=== PATIENT | male | born 1950 | race Caucasian/White ===

== ENCOUNTER 2016-06-21 18:37 | Inpatient (IN) | payer MEDICARE, MEDICAID ==
[~2016-06-21] VITALS: Ht 165.1 cm; Wt 70.8 kg
[~2016-06-21 18:37] MED LIST: ASPI81TA31 PO; CANA100T PO; CLOP75TA2 PO; DONE10TA44 PO; FELO10TA3 PO; GABA-532 PO; GLIM4TAB3 PO; LINA5TAB PO; LORA10TA50 PO; METO-306 PO; PARO10TA26 PO; PRAV80TA21 PO; TAMS0.4C34 PO; TEMA30CA PO; [UNRECOGNIZED DRUG - CODE] PO
[2016-06-21] MEDS ORDERED: IV NORMAL SALINE 500 ML IV ONE (18:53)
[2016-06-21] MEDS ORDERED: MEMA1CAP3 PO (19:08)
[2016-06-21] MEDS ORDERED: DUTA0.5C15 PO (19:08)
[2016-06-21] MEDS ORDERED: AMLO5TAB4 PO (19:08)
[2016-06-21] MEDS ORDERED: EMPA25TA PO (19:08)
[2016-06-21] MEDS ORDERED: TRAM50TA2 PO (19:08)
[2016-06-21] MEDS ORDERED: FOLI1TAB16 PO (19:08)
[2016-06-21 19:38] LABS: HEMOGLOBIN 12.3 g/dL (14.0-18.0)
[2016-06-21 19:42] LABS: HEMATOCRIT 38.6 % (40.0-50.0); MEAN CORPUSCULAR VOLUME 79.3 fL (82.0-92.0); RED BLOOD CELL COUNT(AUTO) 4.87 MIL/uL (4.70-6.10); WHITE BLOOD COUNT (AUTO) 7.6 K/uL (4.0-11.2)
[2016-06-21 19:43] LABS: MEAN CORPUSCULAR HEMOGLOBIN 25.3 uug (27.0-31.0); MEAN CORPUSCULAR HGB CONC 32 g/dL (32.0-37.0); PLATELET COUNT (AUTO) 328 K/uL (150-450); RED CELL DISTRIBUTION WIDTH 15.4 % (11.5-14.5)
[2016-06-21 19:47] LABS: CALCIUM 8.4 mg/dL (8.5-10.1); CREATININE 1.1 mg/dL (0.6-1.3); POTASSIUM 4.1 mmol/L (3.5-5.1)
[2016-06-21 19:48] LABS: ANISOCYTOSIS 1+; BAND % (MANUAL) 3 % (0-10); EOSINOPHILS % (MANUAL) 2 % (0-8); LYMPHOCYTES % (MANUAL) 11 % (20-40); MONOCYTES % (MANUAL) 8 % (2-10); NEUTROPHILS % (MANUAL) 76 % (42-75); OVALOCYTES 1+; PLATELET ESTIMATE ADEQUATE
--- NOTE | 2016-06-21 19:49 | NUR ---
Patient to radiology for CT via [place].
[2016-06-21 19:59] LABS: ALBUMIN 3.2 g/dL (3.4-5.0); BILIRUBIN,DIRECT 0.1 mg/dL (0.0-0.2); BILIRUBIN,TOTAL 0.3 mg/dL (0.2-1.0); TOTAL PROTEIN, SERUM 6.5 g/dL (6.4-8.2)
--- NOTE | 2016-06-21 20:51 | NUR ---
Call placed to [facility] Nephrology, Dr. Torres will be paged.
[2016-06-21] MEDS ORDERED: ENOXAPARIN SODIUM 80 MG/0.8 ML DISP.SYRIN SQ ONE ×2 (21:00→21:26)
[2016-06-21] MEDS ORDERED: ASPIRIN 81 MG TAB.CHEW PO ONE (21:00)
[2016-06-21] MEDS ORDERED: NITROGLYCERIN OINT 1 GM PACKET TP ONE ×2 (21:00→21:26)
[2016-06-21 21:19] LABS: *OCCULT BLOOD STOOL NEGATIVE (NEGATIVE)
[2016-06-21] MEDS ORDERED: ASPIRIN 81 MG TAB.CHEW ONE (21:25)
[2016-06-21 21:36] LABS: ACETONE, SERUM NEGATIVE (NEGATIVE)
[2016-06-21 21:58] LABS: *BILIRUBIN,URIN NEGATIVE (NEGATIVE); *BLOOD, URINE NEGATIVE (NEGATIVE); *CLARITY,URINE CLEAR (CLEAR); *COLOR,URINE YELLOW (YELLOW); *KETONES,URINE NEGATIVE (NEGATIVE); *PROTEIN,URINE TRACE (NEGATIVE); *UROBILINOGEN,URINE 0.2 E.U./dl (NORMAL); LEUKOCYTE ESTERASE ,URINE NEGATIVE (NEGATIVE); NITRITE, URINE NEGATIVE (NEGATIVE)
[2016-06-21 22:09] LABS: UGLUCOSE 2+ (NEGATIVE)
[2016-06-21 22:11] LABS: SQUAMOUS EPITHELIAL CELL,UR FEW /HPF (NONE SEEN); WBC,URINE 0-3 /HPF (0-3)
--- NOTE | 2016-06-21 22:28 | NUR ---
Pt. admitted to TELE, under care of Dr. Torres Belongs List completed
[2016-06-21] MEDS ORDERED: TEMAZEPAM 30 MG CAPSULE PO PRN (22:45)
[2016-06-21] MEDS ORDERED: DEXTROSE 50% 50 ML DISP.SYRIN IV PRN (22:45)
--- NOTE | 2016-06-21 22:45 | NUR ---
RECEIVED PATIENT VIA GURNEY FROM ER. PATIENT IS A/O X3. PRIMARILY [place] SPEAKING BUT SPEAKS [place] AND ABLE TO MAKE NEEDS KNOWN. PATIENT TENDS TO BECOME FORGETFUL AT TIMES. PATIENT DENIES PAIN OR DISCOMFORT. NO RESP. DISTRESS NOTED OR C/O. PLACED ON TELE ORDERED SINUS RHYTHM. BP 179/98. PATIENT STATED THAT HE HAS NOT TAKEN ANY OF HIS MEDICATIONS TODAY. ALL OTHER VSS. HEPLOCK INTACT AND NOTED TO LEFT WRIST. ORIENTED PATIENT TO ROOM AND CALL LIGHT. BED ALARM ON, CALL LIGHT IN REACH. ALL NEEDS ATTENDED. WILL CONTINUE TO MONITOR.
[2016-06-21] MEDS: BLOOD SUGAR DIAGNOSTIC 1 EACH STRIP VI SCH (22:46)
--- NOTE | 2016-06-21 23:00 | NUR ---
PATIENT GIVEN ROUTINE HS MEDS. GIVEN NORVASC 5MG PO FOR BP 179/98. ALL OTHER VSS. ON TELE SR. CALL LIGHT IN REACH. ALL NEEDS ATTENDED.
[2016-06-21 23:07] VITALS: BP 179/98
[2016-06-21] MEDS: PAROXETINE HCL 10 MG TABLET PO SCH (23:09)
[2016-06-21] MEDS: DUTASTERIDE 0.5 MG CAPSULE PO SCH (23:09)
[2016-06-21] MEDS: AMLODIPINE 5 MG TABLET PO SCH (23:10)
[2016-06-21] MEDS ORDERED: AMLODIPINE 5 MG TABLET ONE (23:14)
[2016-06-21] MEDS ORDERED: DUTASTERIDE 0.5 MG CAPSULE ONE (23:15)
[2016-06-21] MEDS ORDERED: PAROXETINE HCL 10 MG TABLET ONE (23:15)
--- NOTE | 2016-06-21 23:50 | NUR ---
PATIENT DENIES CHEST PAIN. WILL CONTINUE TO MONITOR.
--- NOTE | 2016-06-22 04:30 | NUR ---
PATIENT ASSISTED TO THE BATHROOM TO URINATE. PATIENT IS VERY WEAK AND UNSTEADY. NEEDS MAX ASSIST OOB. VERY FORGETFUL AT TIMES. BED ALARM ON. CALL LIGHT IN REACH. ALL NEEDS ATTENDED. WILL CONTINUE TO MONITOR.
[2016-06-22 06:00] VITALS: BP 173/97
--- NOTE | 2016-06-22 06:00 | NUR ---
PATIENT AWAKE IN BED. BP 173/97. CALLED OUT TO DR. SOOD FOR FURTHER ORDERS.
[2016-06-22] MEDS: BLOOD SUGAR DIAGNOSTIC 1 EACH STRIP VI SCH ×4 (06:33→20:22)
--- NOTE | 2016-06-22 06:36 | NUR ---
PATIENT ON TELE SR.
--- NOTE | 2016-06-22 06:46 | NUR ---
RECEIVED CALL BACK FROM DR. SOOD. OK TO GIVE ROUTINE METOPROLOL SUCCINATE XL 100MG PO NOW FOR BP 173/97. WILL CONTINUE TO MONITOR.
[2016-06-22] MEDS: METOPROLOL SUCCINATE XL 100 MG TAB.SR.24H PO SCH ×2 (06:49→06:50)
[2016-06-22 07:08] LABS: HEMATOCRIT 36.1 % (40.0-50.0); HEMOGLOBIN 11.6 g/dL (14.0-18.0); MEAN CORPUSCULAR HEMOGLOBIN 25.3 uug (27.0-31.0); MEAN CORPUSCULAR HGB CONC 32 g/dL (32.0-37.0); MEAN CORPUSCULAR VOLUME 79.1 fL (82.0-92.0); PLATELET COUNT (AUTO) 303 K/uL (150-450); RED BLOOD CELL COUNT(AUTO) 4.57 MIL/uL (4.70-6.10); RED CELL DISTRIBUTION WIDTH 15.1 % (11.5-14.5); WHITE BLOOD COUNT (AUTO) 6.7 K/uL (4.0-11.2)
[2016-06-22 07:18] LABS: ALBUMIN 2.9 g/dL (3.4-5.0); BILIRUBIN,TOTAL 0.3 mg/dL (0.2-1.0); CALCIUM 8.4 mg/dL (8.5-10.1); MAGNESIUM 1.9 mg/dL (1.8-2.4); PHOSPHOROUS 4.1 mg/dL (2.5-4.9); POTASSIUM 3.9 mmol/L (3.5-5.1); TOTAL PROTEIN, SERUM 6.1 g/dL (6.4-8.2)
[2016-06-22] MEDS ORDERED: TEMAZEPAM 15 MG CAPSULE PO PRN (07:30)
[2016-06-22] MEDS ORDERED: TRAMADOL HCL 50 MG TABLET PO PRN (07:45)
[2016-06-22] MEDS ORDERED: METFORMIN XR 500 MG TAB.SR.24H PO SCH (08:00)
[2016-06-22] MEDS ORDERED: Medication Not On Formulary EA (Empagliflozin (Jardiance) 25 MG) PO SCH (09:00)
[2016-06-22] MEDS ORDERED: METOPROLOL SUCCINATE XL 100 MG TAB.SR.24H PO SCH ×2 (09:00→12:30)
[2016-06-22] MEDS ORDERED: Medication Not On Formulary EA (Memantine HCl/Donepezil HCl (Namzaric 28 mg-10 mg Capsul PO SCH (09:00)
[2016-06-22] MEDS: GLIMEPIRIDE 4 MG TABLET PO SCH ×2 (09:32→17:43)
[2016-06-22] MEDS: FOLIC ACID 1 MG TABLET PO SCH (09:33)
[2016-06-22] MEDS: GABAPENTIN 100 MG CAPSULE PO SCH ×2 (09:33→20:21)
[2016-06-22] MEDS: LINAGLIPTIN 5 MG TABLET PO SCH (09:33)
[2016-06-22] MEDS: CLOPIDOGREL 75 MG TABLET PO SCH (09:33)
[2016-06-22] MEDS: ASPIRIN 81 MG TAB.CHEW PO SCH (09:33)
--- NOTE | 2016-06-22 09:47 | NUR ---
0900 DOSE OF TOPROL GIVEN AT 0650
[2016-06-22] MEDS: DONEPEZIL 10 MG TABLET PO SCH (10:36)
[2016-06-22 11:28] LABS: LYMPHOCYTES % (AUTO) 24.5 % (20.5-51.5); NEUTROPHILS % (AUTO) 61.3 % (38.5-71.5)
[2016-06-22 11:29] LABS: BASOPHILS % (AUTO) 0.5 % (0.0-2.0); EOSINOPHILS % (AUTO) 3.7 % (0.0-7.0)
[2016-06-22 11:31] VITALS: BP 157/90
[2016-06-22] MEDS: INSULIN REGULAR, HUMAN 300 UNIT/3 ML VIAL SQ PRN (12:01)
[2016-06-22 15:55] VITALS: BP 181/99
[2016-06-22] MEDS: VALSARTAN 160 MG TABLET PO SCH (17:40)
[2016-06-22] MEDS: AMLODIPINE 5 MG TABLET PO SCH (17:41)
[2016-06-22] MEDS: METFORMIN HCL 500 MG TABLET PO SCH (17:43)
[2016-06-22 20:00] VITALS: BP 186/102
--- NOTE | 2016-06-22 20:00 | NUR ---
RECEIVED PATIENT AWAKE IN BED. ALERT TO SELF. CONFUSED. PATIENT IS EASILY FORGETFUL. DENIES PAIN OR DISCOMFORT. BP STILL ELEVATED. 186/102. CALLED OUT TO DR. SOTO CHIEF MEDICAL PHYSICIST FOR FURTHER ORDERS. ALL OTHER VSS. BED ALARM ON. CALL LIGHT IN REACH. ALL NEEDS ATTENDED. WILL CONTINUE TO MONITOR.
[2016-06-22] MEDS: NITROGLYCERIN OINT 1 GM PACKET TP PRN (20:09)
--- NOTE | 2016-06-22 20:10 | NUR ---
PATIENT GIVEN NITRO-BID 1 INCH TO CHEST WALL FOR ELEVATED BP. WILL CONTINUE TO MONITOR.
[2016-06-22] MEDS ORDERED: NITROGLYCERIN OINT 1 GM PACKET TP ONE (20:15)
[2016-06-22] MEDS: ATORVASTATIN 20 MG TABLET PO SCH (20:21)
[2016-06-22] MEDS: MEMANTINE HCL 10 MG TABLET PO SCH (20:21)
[2016-06-22] MEDS: DUTASTERIDE 0.5 MG CAPSULE PO SCH (20:21)
[2016-06-22] MEDS: PAROXETINE HCL 10 MG TABLET PO SCH (20:21)
--- NOTE | 2016-06-22 22:30 | NUR ---
PATIENTS BLOOD PRESSURE IS SLOWLY TRENDING DOWN. PATIENT DENIES ANY CHEST PAIN. WILL CONTINUE TO MONITOR.
--- NOTE | 2016-06-23 03:45 | NUR ---
PATIENT AWAKE. BP ELEVATED 173/105. PATIENT GIVEN NITRO BID 1 INCH TO CHEST WALL ORDERED PRN. WILL CONTINUE TO MONITOR.
[2016-06-23] MEDS: NITROGLYCERIN OINT 1 GM PACKET TP PRN (03:49)
[2016-06-23] MEDS ORDERED: NITROGLYCERIN OINT 1 GM PACKET TP ONE (03:53)
[2016-06-23 04:00] VITALS: BP 176/105
--- NOTE | 2016-06-23 06:02 | NUR ---
PATIENT ASLEEP IN BED. NO S/S OF PAIN OR DISCOMFORT. NO RESP. DISTRESS NOTED. WILL CONTINUE TO MONITOR AND ASSESS BLOOD PRESSURE. BED ALARM ON. CALL LIGHT IN REACH. ALL NEEDS ATTENDED.
[2016-06-23] MEDS: BLOOD SUGAR DIAGNOSTIC 1 EACH STRIP VI SCH ×4 (06:33→20:12)
--- NOTE | 2016-06-23 06:38 | NUR ---
RECHECKED PATIENT BLOOD PRESSURE, 162/102. SLOWLY TRENDING DOWN. DENIES CHEST PAIN. WILL CONTINUE TO MONITOR.
[2016-06-23] MEDS: ASPIRIN 81 MG TAB.CHEW PO SCH (08:50)
[2016-06-23] MEDS: DONEPEZIL 10 MG TABLET PO SCH (08:50)
[2016-06-23] MEDS: GLIMEPIRIDE 4 MG TABLET PO SCH ×2 (08:50→18:07)
[2016-06-23] MEDS: GABAPENTIN 100 MG CAPSULE PO SCH ×2 (08:51→20:11)
[2016-06-23] MEDS: CLOPIDOGREL 75 MG TABLET PO SCH (08:51)
[2016-06-23] MEDS: MEMANTINE HCL 10 MG TABLET PO SCH ×2 (08:51→20:11)
[2016-06-23] MEDS: FOLIC ACID 1 MG TABLET PO SCH (08:51)
[2016-06-23] MEDS: VALSARTAN 160 MG TABLET PO SCH (08:51)
[2016-06-23] MEDS: METOPROLOL SUCCINATE XL 100 MG TAB.SR.24H PO SCH (08:52)
[2016-06-23] MEDS: METFORMIN HCL 500 MG TABLET PO SCH ×2 (08:54→18:08)
[2016-06-23] MEDS: LINAGLIPTIN 5 MG TABLET PO SCH (08:54)
[2016-06-23] MEDS ORDERED: METOPROLOL SUCCINATE XL 100 MG TAB.SR.24H PO SCH (09:00)
[2016-06-23 11:47] VITALS: BP 166/104
[2016-06-23] MEDS ORDERED: LISINOPRIL 10 MG TABLET PO SCH (12:15)
[2016-06-23 16:09] VITALS: BP 159/100
[2016-06-23 20:00] VITALS: BP 160/97
[2016-06-23] MEDS: PAROXETINE HCL 10 MG TABLET PO SCH (20:11)
[2016-06-23] MEDS: ATORVASTATIN 20 MG TABLET PO SCH (20:11)
[2016-06-23] MEDS: DUTASTERIDE 0.5 MG CAPSULE PO SCH (20:12)
[2016-06-23] MEDS: INSULIN REGULAR, HUMAN 300 UNIT/3 ML VIAL SQ PRN (20:14)
[2016-06-23] MEDS ORDERED: AMLODIPINE 5 MG TABLET PO SCH (21:00)
--- NOTE | 2016-06-23 21:00 | NUR ---
PT'S A/A/O X3,ON BED REST COMFORTABLY DENIED OF PAIN OR ANY DISCOMFORT AND STATED THAT" I WANT TO GO TO BATHROOM TO CLEAN MY FACE";ACTUALLY PT NEEDED MAXIMAL ASSISTANCE;EDUCATED TO PT TO DO IT ON BED;PT'S COOPERATIVE AT THIS TIME.PM CARE'S GIVEN ON BED.KEPT COMFORT TO PT.SNACK'S GIVEN;EDUCATED TO PT,HE VERBALIZED UNDERSTANDING AND TOLERATED WELL NOTED.BED ALARM'S ON.FALL PREVENTION'S PERFORMED.CLOSELY MONITORING TO PT.
[2016-06-24 04:23] VITALS: BP 174/98
[2016-06-24] MEDS: NITROGLYCERIN OINT 1 GM PACKET TP PRN (04:25)
--- NOTE | 2016-06-24 04:25 | NUR ---
NITROBID OINTMENT WAS APPLIED TO PT AT THIS TIME DUE TO BP 174/98 [facility];EDUCATED TO PT;HE VERBALIZED UNDERSTANDING.ASSISTED FOR AM CARE ON BED AT THIS TIME;PT'S COOPERATIVE W/ASSISTANCE AND STATED THAT"I SLEPT ~2- 3 HOURS THAT'S WHY MY BLOOD PRESSURE'S GOING UP";KEPT COMFORT.CALL-LIGHT WITHIN REACH.BED ALARM'S ON.
[2016-06-24] MEDS: BLOOD SUGAR DIAGNOSTIC 1 EACH STRIP VI SCH ×2 (06:19→11:34)
--- NOTE | 2016-06-24 08:00 | NUR ---
awake alert and oriented x 2, denies of pain, no shortness of breath noted, explained plan of care- verbalized understanding, readied for breakfast, right arm dsg dry and intact, call lite within reach, bed alarm on. pt is forgetful but cooperative and pleasant
[2016-06-24] MEDS: METFORMIN HCL 500 MG TABLET PO SCH (08:42)
[2016-06-24] MEDS: DONEPEZIL 10 MG TABLET PO SCH (08:43)
[2016-06-24] MEDS: METOPROLOL SUCCINATE XL 100 MG TAB.SR.24H PO SCH (08:43)
[2016-06-24] MEDS: MEMANTINE HCL 10 MG TABLET PO SCH (08:43)
[2016-06-24] MEDS: FOLIC ACID 1 MG TABLET PO SCH (08:43)
[2016-06-24] MEDS: GLIMEPIRIDE 4 MG TABLET PO SCH (08:43)
[2016-06-24] MEDS: GABAPENTIN 100 MG CAPSULE PO SCH (08:44)
[2016-06-24] MEDS: ASPIRIN 81 MG TAB.CHEW PO SCH (08:44)
[2016-06-24] MEDS: VALSARTAN 160 MG TABLET PO SCH (08:44)
[2016-06-24] MEDS: CLOPIDOGREL 75 MG TABLET PO SCH (08:44)
[2016-06-24] MEDS: LINAGLIPTIN 5 MG TABLET PO SCH (08:45)
[2016-06-24 11:15] VITALS: BP 145/92
--- NOTE | 2016-06-24 11:30 | NUR ---
pt is going to [facility]- pt is in agreement- case mgt informed family
[2016-06-24] MEDS: INSULIN REGULAR, HUMAN 300 UNIT/3 ML VIAL SQ PRN (11:37)
[2016-06-24] MEDS ORDERED: Valsartan PO (13:08)
[2016-06-24] MEDS ORDERED: AMLO5TAB2 PO (13:08)
--- NOTE | 2016-06-24 13:10 | NUR ---
seen by Dr Spencer- to be d/cd to [facility]
--- NOTE | 2016-06-24 15:00 | NUR ---
report given to Abrahan at [facility]
[2016-06-24 15:10] VITALS: BP 149/80
--- NOTE | 2016-06-24 15:55 | NUR ---
ambulance here- report given, taken per stretcher in stable condition with all belongings
== END 2016-06-24 15:55 | DRG 282 ==
LOC: ER 18:37 → TELE 22:03 → MED 06-22 13:10
PROVIDERS: ADMIT Internal Medicine; ATTEND Internal Medicine
DX: I21.4 Non-ST elevation (NSTEMI) myocardial infarction (principal); F03.90 Unspecified dementia, unspecified severity, without behavioral disturbance, psychotic disturbance, mood disturbance, and anxiety; E11.9 Type 2 diabetes mellitus without complications; I10 Essential (primary) hypertension; Z86.73 Personal history of transient ischemic attack (TIA), and cerebral infarction without residual deficits; R29.6 Repeated falls; R53.1 Weakness; R26.9 Unspecified abnormalities of gait and mobility; Z79.84 Long term (current) use of oral hypoglycemic drugs
CPT/HCPCS: 36415; 70030-TC; 70450; 71010; 83605; 83735; 84100; 85025; 85651; 85730; 86140; 87040; 93005; 97001; 97116; 97530; A4663; J1650; J1815; J7040